=== PATIENT | male | born 1960 | race Caucasian/White ===

== ENCOUNTER → 2017-06-26 | Outpatient (CLI) | payer OTHER ==
[~2017-06-26] MED LIST: BISACODYL LAXATI5 MG PO; CATAPRES-TTS 10.1 MG T; CLONAZEPAM1 MG PO; CLONIDINE HYDR0.1 MG PO; FEROSUL325 MG PO; GAVISCON 80 MG-1 CT1 PO; LISINOPRIL20 MG PO; MIRALAX POWDER17 G1 PO; MIRTAZAPINE15 M2 PO; PROTONIX TR40 M1 PO; TYLENOL650 MG R
== END | disposition home or self-care (01) ==
LOC: RAD 10:14
DX: M50.322 Other cervical disc degeneration at C5-C6 level (principal); M50.323 Other cervical disc degeneration at C6-C7 level; M48.02 Spinal stenosis, cervical region